=== PATIENT | male | born 1985 | race Two or more races ===

== ENCOUNTER 2018-03-22 13:14 | Emergency (ER) | payer SELFPAY ==
[~2018-03-22] VITALS: Ht 160 cm; Wt 68.0 kg
[2018-03-22] MEDS ORDERED: NKM (13:27)
[2018-03-22 13:30] VITALS: BP 122/69
--- NOTE | 2018-03-22 13:51 | NUR ---
ED Nurse Note: received pt from LEONA Gilbert. A/Ox4. Pt ambulated in to ER due to LLQ abdominal pain 12/12 since this morning, increased pain in sitting positing. Denies N/V/D nor fever.
[2018-03-22 13:55] LABS: BASOPHILS % (AUTO) 0.5 % (0.0-2.0); EOSINOPHILS % (AUTO) 0.3 % (0.0-3.0); HEMATOCRIT 47.1 % (42.0-52.0); HEMOGLOBIN 15.8 G/DL (14.2-18.0); LYMPHOCYTES % (AUTO) 11.4 % (20.0-45.0); MEAN CORPUSCULAR VOLUME 92 FL (80-99); MONOCYTES % (AUTO) 3.6 % (1.0-10.0); NEUTROPHILS % (AUTO) 84.2 % (45.0-75.0); PLATELET COUNT 270 K/UL (150-450); RED CELL DISTRIBUTION WIDTH 11.8 % (11.6-14.8); WHITE BLOOD COUNT 11.8 K/UL (4.8-10.8)
[2018-03-22 13:57] LABS: APPEARANCE,URINE CLEAR; BILIRUBIN, URINE NEGATIVE (NEGATIVE); COLOR,URINE PALE YELLOW; GLUCOSE, URINE (UA) NEGATIVE (NEGATIVE); KETONES,URINE NEGATIVE (NEGATIVE); LEUKOCYTE ESTERASE ,URINE NEGATIVE (NEGATIVE); NITRITE,URINE NEGATIVE (NEGATIVE); PH,URINE 7 (4.5-8.0); PROTEIN,URINE NEGATIVE (NEGATIVE); UROBILINOGEN,URINE NORMAL MG/DL (0.0-1.0)
[2018-03-22 14:06] LABS: ANION GAP 9 mmol/L (5-15); BLOOD UREA NITROGEN 11 mg/dL (7-18); CALCIUM 8.9 MG/DL (8.5-10.1); CARBON DIOXIDE 27 MMOL/L (21-32); CHLORIDE 102 MMOL/L (98-107); CREATININE 0.7 MG/DL (0.55-1.30); POTASSIUM 3.3 MMOL/L (3.5-5.1); SODIUM 138 MMOL/L (136-145)
[2018-03-22 14:11] LABS: ALANINE AMINOTRANSFERASE 47 U/L (12-78); ALBUMIN 4.4 G/DL (3.4-5.0); ALBUMIN/GLOBULIN RATIO 1.1 (1.0-2.7); ALKALINE PHOSPHATASE 95 U/L (46-116); ASPARTATE AMINO TRANSFERASE 21 U/L (15-37); BILIRUBIN,TOTAL 0.3 MG/DL (0.2-1.0)
--- NOTE | 2018-03-22 15:18 | Diagnostic Imaging Report ---
Indication: Abdominal pain Technique: Continuous helical transaxial imaging of the abdomen and pelvis was obtained from the lung bases to the pubic symphysis. No intravenous contrast was administered. Coronal 2-D reformats were also obtained. Automatic Exposure Control was utilized. Total Dose length Product (DLP): 570.[address] Dose Index Volume (CTDIvol): 10.58 mGy Comparison: none Findings: There are fluid-filled mildly distended loops of mid to proximal small bowel. There is an apparent transition in the right lower quadrant abdomen although the precise point of the transition is not certain. There are terminal ileum is decompressed. There are no signs of previous abdominal surgery. Please correlate clinically. Would consider possibility of partial obstruction or ileus. The colon is decompressed. The appendix is normal. Evaluation is limited given the nonadministration of intravenous and oral contrast material. The gallbladder is partially contracted. No renal stones or hydronephrosis identified. Urinary bladder is unremarkable IMPRESSION: Suspected small bowel obstruction with transition in the right lower quadrant. Obstruction could be partial or findings could be due to inflammatory process i.e. enteritis/ileus. There are no signs of prior surgery. Please correlate clinically and with the surgical history if any. Follow-up recommended. Limited evaluation due to the nonadministration of oral contrast and IV contrast. Normal appendix The CT scanner at [facility] is accredited by the [employer] and the scans are performed using dose optimization techniques as appropriate to a performed exam including Automatic Exposure control.
[2018-03-22 15:50] VITALS: BP 107/62
[2018-03-22 17:26] VITALS: BP 128/70
[2018-03-22 17:27] VITALS: BP 107/62
--- NOTE | 2018-03-22 17:27 | NUR ---
ED Nurse Note: pt requested to be discharged. Dr. Tabor educated pt that he needs to stay in the hospital at this time but pt refused. Pt was informed regarding risks and consequences involved in leaving the hospital at this time. IV and ID wrist band removed. All belongings given to pt. A/Ox4. Pt ambulated out of ER with steady gait with pt's family member. VSS.
--- NOTE | 2018-03-22 17:27 | Emergency Room Report ---
Physical Exam Vital Signs Date Time Temp Pulse Resp B/P (MAP) Pulse Ox O2 Delivery O2 Flow Rate FiO2 03/22/18 13:25 97.9 67 16 142/88 100 Room Air General Appearance: normal inspection Neck: normal inspection Gastrointestinal: normal inspection, normal bowel sounds, non tender, soft Medical Decision Making Diagnostic Impression: Primary Impression: Abdominal pain ER Course discussed with patient regarding signing out AMA. CT result discussed with patient. patient is alert and has complete decision making capacity. Legal Coordinator utilized. Last Vital Signs Date Time Temp Pulse Resp B/P (MAP) Pulse Ox O2 Delivery O2 Flow Rate FiO2 03/22/18 15:50 97.9 90 14 107/62 100 Room Air Disposition: AGAINST MEDICAL ADVICE Referrals: NOT CHOSEN IPA/,REFERRING (PCP) SAMEERA SALAS Mar 22, 2018 17:27
== END 2018-03-22 17:35 | disposition left against medical advice (07) ==
LOC: EMR 14:04
DX: R10.9 Unspecified abdominal pain (principal)
CPT/HCPCS: 36415; 74176; 80053; 81003; 83690; 85025; 99284